=== PATIENT | female | born 1965 | race African-American/Black ===

== ENCOUNTER 2024-05-14 08:45 | Emergency (ER) | payer BC ==
[~2024-05-14] VITALS: Ht 162.6 cm; Wt 74.0 kg
[2024-05-14 08:52] VITALS: BP 155/71; RESP 18; TEMP 98.7; O2SAT 99
[2024-05-14 08:55] VITALS: PULSE 82; O2SAT 100
[2024-05-14 09:23] LABS: CLARITY URINE CLOUDY (CLEAR); COLOR URINE DARK YELLOW (YELLOW); GLUCOSE URINE NEGATIVE (NEGATIVE); KETONES URINE TRACE (NEGATIVE); LEUKOCYTE ESTERASE URINE TRACE (NEGATIVE); NITRITE URINE NEGATIVE (NEGATIVE); OCCULT BLOOD URINE NEGATIVE (NEGATIVE); PH URINE 5.5 (4.5-8.0); PROTEIN URINE 1+ (NEGATIVE)
[2024-05-14] MEDS ORDERED: MECLIZINE 25MG TABLET PO ONE (09:30)
[2024-05-14 09:45] LABS: BACTERIA URINE 2+; CALCIUM OXALATE CRYSTALS URINE 1+ /lpf; RBC URINE 0-2 /hpf (0-2); SQUAMOUS EPITHELIAL CELL URINE 3+ /lpf (RARE/1+); YEAST URINE NONE SEEN
== END 2024-05-14 09:45 | disposition home or self-care (01) ==
LOC: ER 08:45
DX: R42 Dizziness and giddiness (principal); I10 Essential (primary) hypertension
CPT/HCPCS: 81003; 82962; 99283